=== PATIENT | female | born 1980 | race Caucasian/White ===

== ENCOUNTER 2019-02-04 09:44 | Emergency (ER) | payer MEDICAID ==
[~2019-02-04] VITALS: Ht 152.4 cm; Wt 100.0 kg
[2019-02-04 12:19] VITALS: BP 119/76
== END 2019-02-04 12:21 | disposition home or self-care (01) ==
LOC: EMS 09:47
DX: S46.012A Strain of muscle(s) and tendon(s) of the rotator cuff of left shoulder, initial encounter (principal); S46.011A Strain of muscle(s) and tendon(s) of the rotator cuff of right shoulder, initial encounter; G56.03 Carpal tunnel syndrome, bilateral upper limbs; M77.12 Lateral epicondylitis, left elbow; M77.11 Lateral epicondylitis, right elbow; M77.02 Medial epicondylitis, left elbow; M77.01 Medial epicondylitis, right elbow; Z88.8 Allergy status to other drugs, medicaments and biological substances; X50.9XXA Other and unspecified overexertion or strenuous movements or postures, initial encounter; Y93.89 Activity, other specified; Y92.89 Other specified places as the place of occurrence of the external cause; Y99.8 Other external cause status